=== PATIENT | male | born 1985 | race Caucasian/White ===

== ENCOUNTER 2017-06-15 13:22 | Emergency (ER) | payer MEDICAID ==
[~2017-06-15] VITALS: Ht 167.6 cm; Wt 100.0 kg
[2017-06-15 13:49] VITALS: BP 151/97
== END 2017-06-15 15:06 | disposition home or self-care (01) ==
LOC: EMS 13:23
DX: Z48.02 Encounter for removal of sutures (principal); R03.0 Elevated blood-pressure reading, without diagnosis of hypertension
CPT/HCPCS: 99281